=== PATIENT | male | born 1930 | race Caucasian/White ===

== ENCOUNTER 2016-07-21 08:30 | Emergency (ER) | payer MEDICARE, BC | END 2016-07-21 09:50 | disposition home or self-care (01) | LOC: ER1 08:30 | DX: S40.852A Superficial foreign body of left upper arm, initial encounter (principal); I10 Essential (primary) hypertension; E78.5 Hyperlipidemia, unspecified; Z90.49 Acquired absence of other specified parts of digestive tract; Z88.0 Allergy status to penicillin; Z88.8 Allergy status to other drugs, medicaments and biological substances; Z79.82 Long term (current) use of aspirin; Z79.899 Other long term (current) drug therapy | CPT/HCPCS: 86618; 99282 ==

== ENCOUNTER 2016-08-01 19:42 | Emergency (ER) | payer MEDICARE, BC ==
[2016-08-01 23:52] LABS: HEMOGLOBIN 14.4 gm/dl (14.0-17.5); RED BLOOD COUNT 4.98 M/UL (4.20-5.50); WHITE BLOOD COUNT 12.5 K/UL (4.5-11.0)
== END 2016-08-02 00:23 | disposition home or self-care (01) ==
LOC: ER1 19:42
PROVIDERS: Physician Assistant
DX: N39.0 Urinary tract infection, site not specified (principal); R31.9 Hematuria, unspecified; I12.0 Hypertensive chronic kidney disease with stage 5 chronic kidney disease or end stage renal disease; N18.6 End stage renal disease; F17.210 Nicotine dependence, cigarettes, uncomplicated; Z90.49 Acquired absence of other specified parts of digestive tract; Z88.0 Allergy status to penicillin
CPT/HCPCS: 36415; 80053; 81001; 85025; 96365; 99283; J0696; J7050

== ENCOUNTER → 2016-09-04 | Outpatient (CLI) | payer MEDICARE, BC | LOC: LAB 07:46 | PROVIDERS: Family Medicine | DX: E78.5 Hyperlipidemia, unspecified (principal); R94.4 Abnormal results of kidney function studies | CPT/HCPCS: 36415; 80048 ==

== ENCOUNTER → 2016-09-10 | Outpatient (CLI) | payer MEDICARE, BC | LOC: EMI 12:49 | DX: I67.2 Cerebral atherosclerosis (principal); R42 Dizziness and giddiness; I67.82 Cerebral ischemia | CPT/HCPCS: 70551 ==